=== PATIENT | male | born 1985 ===

== ENCOUNTER 2021-09-25 21:17 | Emergency (ER) | payer SELFPAY ==
[2021-09-25 21:28] VITALS: BP 134/65
== END 2021-09-26 01:29 | disposition left against medical advice (07) ==
LOC: ED 21:17
DX: S81.811A Laceration without foreign body, right lower leg, initial encounter (principal); Z53.21 Procedure and treatment not carried out due to patient leaving prior to being seen by health care provider; X58.XXXA Exposure to other specified factors, initial encounter; Y93.89 Activity, other specified; Y92.89 Other specified places as the place of occurrence of the external cause; Y99.8 Other external cause status